=== PATIENT | female | born 1940 | race Asian ===

== ENCOUNTER → 2019-05-30 | Outpatient (CLI) | payer MEDICARE ==
[~2019-05-30] MED LIST: ASCO500 PO; ASPI81CH PO; ATOR10 PO; BENADRYL25 MG PO; CHOL10002 PO; CLON.2 PO; Lotrel 10-20 M1 EACH PO; Magnesium500 MG PO; Vitamin E400 UNI4 PO
[2019-05-31 11:16] LABS: Appearance, Urine Clear (Clear); Bilirubin, Urine Neg (Neg); Blood, Urine Neg (Neg); Color, Urine Yellow (P-Yellow); Glucose Qualitative, Urine Neg (Neg); Ketones, Urine 1+ (Neg); Leukocyte Esterase, Urine Neg (Neg); Nitrite, Urine Neg (Neg); Protein, Urine 3+ (Neg); Source, Urine Clean Catch; Specific Gravity, Urine 1.015 (1.003-1.022); Urobilinogen, Urine NORM (Normal); pH, Urine 6.5 (5.0-8.0)
[2019-05-31 11:35] LABS: Bacteria Mod /hpf; Mucus Mod ({null, 0-Heavy}); Red Blood Cells, Urine Not Seen /hpf (0-2); Squamous Epithelial Cells Rare /hpf (Few); White Blood Cells, Urine 0-2 /hpf (0-5)
== END | disposition home or self-care (01) ==
LOC: LAB 18:40 → LAB SHORT 18:40
PROVIDERS: Family Medicine
DX: R42 Dizziness and giddiness (principal); R53.1 Weakness
CPT/HCPCS: 81001; 87086

== ENCOUNTER → 2021-02-09 | Outpatient (CLI) | payer MEDICARE | END | disposition home or self-care (01) | LOC: LAB SHORT 15:00 → LAB 15:00 | DX: R30.0 Dysuria (principal) | CPT/HCPCS: 87077; 87086; 87186 ==

== ENCOUNTER 2021-02-20 08:22 | Day surgery (SDC) | payer MEDICARE ==
[~2021-02-20] VITALS: Ht 160 cm; Wt 58.7 kg
[2021-02-20] MEDS ORDERED: ANAS1 (09:03)
== END 2021-02-20 10:30 | disposition home or self-care (01) ==
LOC: ORSCSDS 08:22
PROVIDERS: Internal Medicine Gastroenterology
PROC: 0DBK8ZX Excision of Ascending Colon, Via Natural or Artificial Opening Endoscopic, Diagnostic (ICD-10-PCS; principal; 2021-02-20 09:45)
DX: Z12.11 Encounter for screening for malignant neoplasm of colon (principal); Z86.010 Personal history of colon polyps; K63.5 Polyp of colon; K57.30 Diverticulosis of large intestine without perforation or abscess without bleeding; K64.4 Residual hemorrhoidal skin tags; I10 Essential (primary) hypertension; Z79.82 Long term (current) use of aspirin; Z79.899 Other long term (current) drug therapy
CPT/HCPCS: J2704; J7120

== ENCOUNTER → 2023-10-24 | Outpatient (CLI) | payer MEDICARE ==
[~2023-10-24] MED LIST changes: +ANAS1
[2023-10-24 15:18] LABS: Candida species (DNA Probe) Negative (NEGATIVE); G. vaginalis (DNA Probe) Negative (NEGATIVE); T. vaginalis (DNA Probe) Negative (NEGATIVE)
== END | disposition home or self-care (01) ==
LOC: LAB SHORT 09:30 → LAB 09:30
PROVIDERS: Student in an Organized Health Care Education/Training Program
DX: R35.0 Frequency of micturition (principal)
CPT/HCPCS: 87086; 87480; 87510; 87660

== ENCOUNTER 2024-10-19 07:38 | Day surgery (SDC) | payer MEDICARE ==
[~2024-10-19] VITALS: Ht 160 cm; Wt 57.4 kg
[~2024-10-19 07:38] MED LIST changes: +Balanced Salt Epinephrine Irrigation Solution 500 mL IR SCH; +Lidocaine HCl/Pf 1% 5 ML VIAL XX SCH; +Moxifloxacin HCL 0.5 MG/0.1 ML 0.4MLSYR RIGHTEYE SCH; +PHENYLEPHRINE\\TROPICAMIDE\\TETRACAINE OPHTHALMIC DILATING SOLN RIGHTEYE PRN; +Povidone-Iodine 450 DROP/30 ML Solution ONE; +Povidone-Iodine 450 DROP/30 ML Solution RIGHTEYE SCH; +Tetracaine HCl/Pf 0.5% Opth Soln 4 ml ONE
--- NOTE | 2024-10-19 08:09 | NUR ---
10/19/24 0809 Robyn Desai PT. VERBALIZES UNKNOWN DOSE OF VALIUM SHE TOOK. PT. VERBALIZES FEELING "A LITTLE LOOPY." PT. DENIES ANY PAIN.
--- NOTE | 2024-10-19 09:42 | NUR ---
10/19/24 0942 Brady Mtz PT VOIDED PRIOR TO D/C. SHE WAS INSTRUCTED TO MONITOR B/P AT HOME, AND FOLLOW UP WITH PCP IF NEEDED.
[2024-10-19 09:46] VITALS: BP 147/80
== END 2024-10-19 09:31 | disposition home or self-care (01) ==
LOC: ORSCSDS 07:38
PROVIDERS: Student in an Organized Health Care Education/Training Program
PROC: 08RJ3JZ Replacement of Right Lens with Synthetic Substitute, Percutaneous Approach (ICD-10-PCS; principal; 2024-10-19 09:00)
DX: H25.811 Combined forms of age-related cataract, right eye (principal); Z96.1 Presence of intraocular lens; H04.123 Dry eye syndrome of bilateral lacrimal glands; I10 Essential (primary) hypertension; E78.5 Hyperlipidemia, unspecified; Z79.82 Long term (current) use of aspirin; Z79.899 Other long term (current) drug therapy
CPT/HCPCS: V2632

== ENCOUNTER 2025-10-25 09:12 | Observation (INO) | payer MEDICARE ==
[~2025-10-25] VITALS: Ht 160 cm; Wt 56.8 kg
[~2025-10-25 09:12] MED LIST changes: -Balanced Salt Epinephrine Irrigation Solution 500 mL IR SCH; -Lidocaine HCl/Pf 1% 5 ML VIAL XX SCH; -Moxifloxacin HCL 0.5 MG/0.1 ML 0.4MLSYR RIGHTEYE SCH; -PHENYLEPHRINE\\TROPICAMIDE\\TETRACAINE OPHTHALMIC DILATING SOLN RIGHTEYE PRN; -Povidone-Iodine 450 DROP/30 ML Solution ONE; -Povidone-Iodine 450 DROP/30 ML Solution RIGHTEYE SCH; -Tetracaine HCl/Pf 0.5% Opth Soln 4 ml ONE
[2025-10-25 10:09] LABS: BASOPHILS ABSOLUTE AUTO 0.03 K/mm3 (0.00-0.23); BASOPHILS PERCENT AUTO 0 % (0-2); EOSINOPHILS ABSOLUTE AUTO 0.00 K/mm3 (0.00-0.68); EOSINOPHILS PERCENT AUTO 0 % (0-6); Hematocrit 36.0 % (33.0-51.0); Hemoglobin 11.9 g/dL (11.5-16.0); IMMATURE GRAN ABSOLUTE AUTO 0.06 K/mm3 (0.00-0.10); IMMATURE GRAN PERCENT AUTO 0 % (0-1); LYMPHOCYTES ABSOLUTE AUTO 0.31 K/mm3 (0.84-5.20); LYMPHOCYTES PERCENT AUTO 2 % (21-46); MONOCYTES ABSOLUTE AUTO 1.28 K/mm3 (0.16-1.47); MONOCYTES PERCENT AUTO 6 % (4-13); Mean Corpuscular HGB Conc 33.1 g/dL (31.5-36.5); Mean Corpuscular Volume 93 fL (80-100); NEUTROPHILS ABSOLUTE AUTO 18.58 K/mm3 (1.96-9.15); NEUTROPHILS PERCENT AUTO 92 % (41-73); NRBC ABSOLUTE 0.00 K/mm3 (0.00-0.02); NRBC Auto 0.0 /100 WBC (0.0-0.2); Platelet Count 127 K/mm3 (150-400); RDW Coefficient Variation 13.2 % (11.7-14.2); RDW Standard Deviation 45.1 fL (35.1-46.3)
[2025-10-25 10:19] LABS: Alanine Aminotransfer (ALT/SGP 38.0 U/L (12-78); Albumin, Blood 3.9 g/dL (3.4-5.0); Albumin/Globulin Ratio 1.2 (0.8-1.8); Anion Gap 9.0 mmol/L (3-11); Aspartate Aminotrans (AST/SGOT 36.0 U/L (12-37); Bilirubin, Total 1.0 mg/dL (0.1-1.0); Blood Urea Nitrogen 22.0 mg/dL (8-24); CO2, Blood 28.0 mmol/L (21-32); Calcium, Blood 9.0 mg/dL (8.5-10.1); Chloride, Blood 103.0 mmol/L (98-108); Creatinine, Blood 0.63 mg/dL (0.40-1.00); Globulin, Blood 3.3 g/dL (2.2-4.0); Glucose, Blood 153.0 mg/dL (70-99); Potassium, Blood 4.3 mmol/L (3.5-5.5); Sodium, Blood 136.0 mmol/L (136-145); Total Protein, Blood 7.2 g/dL (6.4-8.2)
[2025-10-25] MEDS ORDERED: NS 1,000 ML IV SCH ×2 (10:50→18:55)
[2025-10-25 13:13] LABS: Source, Urine Clean Catch
[2025-10-25 13:24] LABS: Bilirubin, Urine Neg (Neg); Color, Urine Yellow (P-Yellow); Glucose Qualitative, Urine Neg (Neg); Ketones, Urine Neg (Neg); Leukocyte Esterase, Urine Neg (Neg); Protein, Urine 3+ (Neg); Specific Gravity, Urine 1.010 (1.003-1.022); Urobilinogen, Urine NORM (Normal)
[2025-10-25 13:36] LABS: Red Blood Cells, Urine 0-2 /hpf (0-2); White Blood Cells, Urine 0-2 /hpf (0-5)
[2025-10-25] MEDS ORDERED: Metoclopramide HCl 5MG / ML 2ML Vial IV ONE (15:00)
[2025-10-25] MEDS ORDERED: DiphenhydrAMINE HCl 50 MG/ML 1ML Vial IV ONE (15:00)
[2025-10-25 17:50] LABS: Thyroid Stimulating Hormone 0.6 uIU/mL (0.360-4.800)
[2025-10-25] MEDS ORDERED: FLU VACC TS2025(65UP)/MF59C/PF 45 MCG/0.5 ML SYRINGE IM SCH (18:55)
[2025-10-25] MEDS ORDERED: Ondansetron HCl 2 MG / ML 2ML Vial IV PRN (18:55)
[2025-10-25 22:56] VITALS: BP 153/79
--- NOTE | 2025-10-25 23:00 | NUR ---
ARRIVAL NOTE PT ARRIVED TO UNIT FROM ED VIA GURNEY AT APPROX 2245 TODAY. PT A/OX4 WITH VSS. DENIES N/V OR DIZZINESS AT THIS TIME, REPORTS RECENT EPISODES PRIOR TO ADMIT. UNABLE TO TRANSFER SELF TO BED R/T WEAKNESS. IV PATENT AN SL. ORIENTATION TO ROOM PROVIDED. PT DENIES CHEST PAIN, PRESSURE, SOB, OR NEEDS. LAVON WATER. SCDS AND TELE APPLIED PER ORDERS. PT HAS CALL LIGHT IN REACH.
[2025-10-25] MEDS ORDERED: THERA-D2000 UNIT PO (23:20)
[2025-10-26 03:04] VITALS: BP 152/77
[2025-10-26 06:12] LABS: Hematocrit 31.9 % (33.0-51.0); Hemoglobin 10.4 g/dL (11.5-16.0); Mean Corpuscular HGB Conc 32.6 g/dL (31.5-36.5); Mean Corpuscular Volume 94 fL (80-100); NRBC ABSOLUTE 0.00 K/mm3 (0.00-0.02); NRBC Auto 0.0 /100 WBC (0.0-0.2); Platelet Count 106 K/mm3 (150-400); RDW Coefficient Variation 13.6 % (11.7-14.2); RDW Standard Deviation 46.5 fL (35.1-46.3)
[2025-10-26 06:35] LABS: Anion Gap 7.0 mmol/L (3-11); Blood Urea Nitrogen 14.0 mg/dL (8-24); CO2, Blood 27.0 mmol/L (21-32); Calcium, Blood 8.2 mg/dL (8.5-10.1); Chloride, Blood 107.0 mmol/L (98-108); Creatinine, Blood 0.59 mg/dL (0.40-1.00); Glucose, Blood 147.0 mg/dL (70-99); Potassium, Blood 3.4 mmol/L (3.5-5.5); Sodium, Blood 138.0 mmol/L (136-145)
[2025-10-26 07:09] VITALS: BP 155/79
[2025-10-26] MEDS ORDERED: Enoxaparin 40 MG/0.4 ML SYR SC SCH (09:00)
[2025-10-26 12:46] VITALS: BP 146/69
[2025-10-26 16:13] VITALS: BP 144/77
--- NOTE | 2025-10-26 16:46 | NUR ---
SUMMARY: PT REPORTS FEELING BETTER TONIGHT. NOT DIZZY AND LESS WEAK. PT IS SBA TO COMMODE WITH FWW. PT EATING AND DRINKING WELL, NO NAUSEA. FLUIDS INFUSING AND PT RECEIVING ANTIVERT. NO CHANGES IN TELE. A/O, VSS, CALL LIGHT IN REACH. REPORT PASSED TO ANALILIA CHAN
--- NOTE | 2025-10-26 17:05 | NUR ---
ASSUMED CARE @1600 REPORT TAKEN FROM MARIA ELENA.
[2025-10-26 19:50] VITALS: BP 163/83
[2025-10-26] MEDS ORDERED: Cholecalciferol 1000 Unit Tablet (=25MCG) PO SCH (21:00)
[2025-10-27 00:30] VITALS: BP 126/60
--- NOTE | 2025-10-27 04:59 | NUR ---
NOC SUMMARY- PT REPORTS HAVING TUNNEL VISION BUT THAT DIZZINESS IS BETTER. PT UP TO BSC TO VOID. PT HAS BEEN RESTING QUIETLY THROUGHOUT SHIFT. NO NEW ISSUES NOTED.
[2025-10-27 05:00] VITALS: BP 130/65
[2025-10-27 05:40] LABS: Hematocrit 32.7 % (33.0-51.0); Hemoglobin 10.6 g/dL (11.5-16.0); Mean Corpuscular HGB Conc 32.4 g/dL (31.5-36.5); Mean Corpuscular Volume 95 fL (80-100); NRBC ABSOLUTE 0.00 K/mm3 (0.00-0.02); NRBC Auto 0.0 /100 WBC (0.0-0.2); Platelet Count 109 K/mm3 (150-400); RDW Coefficient Variation 13.8 % (11.7-14.2); RDW Standard Deviation 48.0 fL (35.1-46.3)
[2025-10-27 06:18] LABS: Anion Gap 7.0 mmol/L (3-11); Blood Urea Nitrogen 18.0 mg/dL (8-24); CO2, Blood 27.0 mmol/L (21-32); Calcium, Blood 8.3 mg/dL (8.5-10.1); Chloride, Blood 108.0 mmol/L (98-108); Creatinine, Blood 0.69 mg/dL (0.40-1.00); Glucose, Blood 119.0 mg/dL (70-99); Potassium, Blood 3.6 mmol/L (3.5-5.5); Sodium, Blood 138.0 mmol/L (136-145)
[2025-10-27 07:22] VITALS: BP 170/85
[2025-10-27] MEDS ORDERED: Vitamin E 400 Intn'l Units Cap PO SCH (09:00)
[2025-10-27] MEDS ORDERED: Polyethylene Glycol 3350 17 gm PO SCH (09:30)
[2025-10-27] MEDS ORDERED: LORazepam 2 MG/ML 1ML Injection IV ONE (12:30)
[2025-10-27] MEDS ORDERED: LORazepam 2 MG/ML 1ML Injection IV PRN (14:15)
[2025-10-27 14:43] VITALS: BP 151/77
--- NOTE | 2025-10-27 17:57 | NUR ---
SHIFT SUMMARY PT WAS UP TO THE CHAIR FOR MOST OF THE SHIFT TODAY, PATIENT REPORTS SOME IMPROVEMENT IN HER VISION AND DIZZINESS. SHE IS ABLE TO STAND AND SELF TRANSFER FROM THE CHAIR TO THE COMMODE INDEPENDENTLY BUT STAFF HAVE BEEN CONSISTENTLY PRESENT D/T FALL RISK AND SAFETY. PLAN FOR MRI WHICH WAS NOT DONE D/T THE WELL LOGGER NOT BEING HERE ON SITE WHEN THE PATIENT WAS READY. PATIENT HAS A 1 TIME ATIVAN DOSE FOR WHEN SHE GETS HER MRI DONE. NO ACUTE EVENTS THIS SHIFT, CALL LIGHT IN REACH.
[2025-10-27 20:10] VITALS: BP 149/81
[2025-10-28 00:20] VITALS: BP 151/78
--- NOTE | 2025-10-28 04:49 | NUR ---
NOS SUMMARY- PT HAS BEEN RESTING QUIETLY. PT HAS BEEN VOIDING WELL. PT REPORTS DIZZINESS CONTINUES, WELL DOUBLE VISION. PT TOLERATING PO. PT REPORTS PASSING FLATUS. NO OTHER ISSUES NOTED.
[2025-10-28 04:50] VITALS: BP 159/81
[2025-10-28 07:28] VITALS: BP 160/80
[2025-10-28 11:26] VITALS: BP 145/72
[2025-10-28] MEDS ORDERED: ONDA4ODT MM (12:32)
[2025-10-28] MEDS ORDERED: MECL25 PO (12:32)
--- NOTE | 2025-10-28 15:54 | NUR ---
DISCHARGE SUMMARY PT REPORTS IMPROVEMENT WITH HER DIZZINESS AND DOING BETTING WITH GETTING UP AND MOVING AROUND USING A FWW. IV ACCESS REMOVED, NEW MEDS FAXED TO HER PHARMACY. DISCUSSED DISCHARGE INSTRUCTIONS INCLUDING HOME CARE, MEDICATIONS, AND FOLLOW UP WITH HER PCP. NO QUESTIONS AT THIS TIME, ESCORTED OUT WITH ALL PERSONAL BELONGINGS TO PRIVATE AUTO TO GO HOME.
== END 2025-10-28 15:05 | disposition home health service (06) ==
LOC: ER 09:12 → ERHOLD 09:13 → SURS 09:13
PROVIDERS: Emergency Medicine; Internal Medicine; Nurse Practitioner Acute Care; Physician Assistant; ADMIT Internal Medicine
DX: R42 Dizziness and giddiness (principal); I10 Essential (primary) hypertension; E78.5 Hyperlipidemia, unspecified; Z79.82 Long term (current) use of aspirin; Z79.899 Other long term (current) drug therapy; Z88.6 Allergy status to analgesic agent; Z88.8 Allergy status to other drugs, medicaments and biological substances
CPT/HCPCS: 36415; 51701; 70450; 70551; 71045; 80048; 80053; 81001; 82607; 83690; 84439; 84443; 85025; 85027; 93005; 93010; 94762; 96361; 96372; 96374; 96375; 97112; 97116; 97162; 97530; 99285-25; A9270; G0378; J1200; J1650; J2060; J2765; J7030